=== PATIENT | female | born 1960 | race Caucasian/White ===

== ENCOUNTER 2017-07-10 13:37 | Emergency (ER) | payer SELFPAY ==
[2017-07-10] MEDS ORDERED: IPRATROPIUM BROM 0.5MG/2.5ML ONE (16:30)
[2017-07-10] MEDS ORDERED: ALBUTEROL 2.5 MG/3 ML NEB SOL ONE (16:30)
--- NOTE | 2017-07-10 16:45 | RAD REPORT ---
EXAM DESCRIPTION: Veronica Gomez And Amie (2 Views)07/10/2017 4:00 pm CLINICAL HISTORY: Cough COMPARISON: None FINDINGS: A mild right parahilar opacity is suspected. The left lung appears clear. A calcified gra nulomas present within the right lung. The heart is normal size IMPRESSION: Mild right parahilar opacity suspicious for infiltrate. This should be followed until i t is clear to help exclude a post obstructive process/underlying mass
--- NOTE | 2017-07-10 16:56 | ER ---
Nurse's Notes [facility] Name: Sue Dorado Age: 57 yrs Sex: Female : 1960 Arrival Date: 07/10/2017 Time: 13:45 Bed 27 Private MD: None, None Diagnosis: Pneumonia, unspecified organism Presentation: 07/10 13:57 Presenting complaint: Patient states: i had cough, running nose since this week, it got hj worse aaron last night, was gasping for air; reports fever and chills;. Transition of care: patient was not received from another setting of care. Onset of symptoms was July 10, 2017. Care prior to arrival: None. 13:57 Method Of Arrival: Ambulatory 13:57 Acuity: YOSEPH 4 hj Triage Assessment: 14:00 General: Appears in no apparent distress. uncomfortable, Behavior is calm, cooperative, hj appropriate for age. Pain: Complains of pain in head. EENT: Historical: - Allergies: 14:00 PENICILLINS; hj - Home Meds: 14:00 None [Active]; hj - PMHx: 14:00 None; hj - PSHx: 14:00 eye; Appendectomy; ; hj - Immunization history:: Pneumococcal vaccine is not up to date, Flu vaccine is not up to date. - Social history:: Smoking status: Patient/guardian denies using tobacco, never smoked. Screenin:21 Abuse screen: Denies threats or abuse. Nutritional screening: No deficits noted. kb1 Tuberculosis screening: No symptoms or risk factors identified. Fall Risk None identified. Assessment: 15:21 General: Appears in no apparent distress. Behavior is cooperative. Neuro: Level of kb1 Consciousness is awake, alert, obeys commands, Oriented to person, place, time, situation. Cardiovascular: Denies chest pain. Respiratory: Reports shortness of breath cough that is productive, for one week Respiratory effort is even, unlabored, Respiratory pattern is regular, symmetrical, Breath sounds with wheezes bilaterally. GI: No signs and/or symptoms were reported involving the gastrointestinal system. : No signs and/or symptoms were reported regarding the genitourinary system. 16:24 Reassessment: Patient appears in no apparent distress at this time. Patient and/or kb1 family updated on plan of care and expected duration. Pain level reassessed. Patient is alert, oriented x 3, equal unlabored respirations, skin warm/dry/pink. Vital Signs: 14:00 BP 107 / 75; Pulse 93; Resp 18; Temp 97.8(TE); Pulse Ox 100% on R/A; Weight 68.04 kg; hj Height 5 ft. 0 in. (152.40 cm); 16:24 BP 118 / 84; Pulse 72; Resp 18; Pulse Ox 96% ; kb1 17:12 BP 126 / 80; Pulse 87; Resp 20; Pulse Ox 97% ; kb1 14:00 Body Mass Index 29.29 (68.04 kg, 152.40 cm) hj ED Course: 13:45 Patient arrived in ED. mr 13:45 None, None is Private Physician. mr 13:59 Triage completed. hj 14:00 Arm band placed on right wrist. hj 14:57 Kaleigh Lyon FNP-C is [facility]. kb 14:57 Ambar Martinez MD is Attending Physician. kb 15:02 Bernadine Iyer, RN is Primary Nurse. kb1 15:21 Patient has correct armband on for positive identification. Call light in reach. kb1 sitting in chair. 15:21 No provider procedures requiring assistance completed. kb1 17:13 Patient did not have IV access during this emergency room visit. kb1 Administered Medications: 16:25 Drug: DuoNeb (3:1) (2.5 mg - 0.5 mg) 3 ml Route: Nebulizer; kb1 16:56 Follow up: Response: No adverse reaction kb1 16:56 Drug: Zithromax 500 mg Route: PO; kb1 17:14 Follow up: Response: No adverse reaction kb1 Outcome: 16:55 Discharge ordered by MD. kb 17:14 Discharged to home ambulatory, with family. kb1 17:14 Condition: improved 17:14 Discharge instructions given to patient, Instructed on discharge instructions, follow up and referral plans. medication usage, Demonstrated understanding of instructions, follow-up care, medications, Prescriptions given X 2. 17:15 Patient left the ED. kb1 Signatures: Kaleigh Lyon FNP-C FNP-Ckb Rivera, Maria mr Joaquin, Henry, RN RN Bernadine Iyer, LINA RN kb1 Corrections: (The following items were deleted from the chart) 17:14 17:13 Patient did not have IV access during this emergency room visit. intact, bleeding kb1 controlled, No redness/swelling at site. Pressure dressing applied, kb1
--- NOTE | 2017-07-10 16:56 | EDPHYS ---
Physician Documentation [facility] Name: Sue Dorado Age: 57 yrs Sex: Female : 1960 Arrival Date: 07/10/2017 Time: 13:45 Bed 27 Private MD: None, None ED Physician Ambar Martinez HPI: 07/10 16:49 This 57 yrs old Female presents to ER via Ambulatory with complaints of kb Cough, Ear Pain, Headache. 16:50 The patient or guardian reports cough, that is intermittent, described as mild, with no kb sputum, flu symptoms, low-grade fever, myalgias. Onset: The symptoms/episode began/occurred last week. Severity of symptoms: At their worst the symptoms were moderate, in the emergency department the symptoms are unchanged. Modifying factors: The symptoms are alleviated by nothing, the symptoms are aggravated by nothing. Associated signs and symptoms: Pertinent positives: fever, rhinorrhea, sore throat, Pertinent negatives: chest pain, diarrhea, ear ache, nausea, vomiting. The patient has not experienced similar symptoms in the past. The patient has not recently seen a physician. Historical: - Allergies: 14:00 PENICILLINS; hj - Home Meds: 14:00 None [Active]; hj - PMHx: 14:00 None; hj - PSHx: 14:00 eye; Appendectomy; ; hj - Immunization history:: Pneumococcal vaccine is not up to date, Flu vaccine is not up to date. - Social history:: Smoking status: Patient/guardian denies using tobacco, never smoked. ROS: 16:53 Cardiovascular: Negative for chest pain, palpitations, and edema, Abdomen/GI: Negative kb for abdominal pain, nausea, vomiting, diarrhea, and constipation, Back: Negative for injury and pain, : Negative for injury, bleeding, discharge, and swelling, MS/Extremity: Negative for injury and deformity, Skin: Negative for injury, rash, and discoloration, Neuro: Negative for headache, weakness, numbness, tingling, and seizure. 16:53 Constitutional: Positive for body aches, chills, fatigue, fever, malaise, Negative for poor PO intake, weight loss. 16:53 ENT: Positive for sore throat. 16:53 Respiratory: Positive for cough, Negative for dyspnea on exertion, hemoptysis, orthopnea, pleurisy, shortness of breath, sputum production, wheezing. Exam: 16:53 Constitutional: This is a well developed, well nourished patient who is awake, alert, kb and in no acute distress. Head/Face: Normocephalic, atraumatic. ENT: Nares patent. No nasal discharge, no septal abnormalities noted. Tympanic membranes are normal and external auditory canals are clear. Oropharynx with no redness, swelling, or masses, exudates, or evidence of obstruction, uvula midline. Mucous membranes moist. Neck: Trachea midline, no thyromegaly or masses palpated, and no cervical lymphadenopathy. Supple, full range of motion without nuchal rigidity, or vertebral point tenderness. No Meningismus. Chest/axilla: Normal chest wall appearance and motion. Nontender with no deformity. No lesions are appreciated. Cardiovascular: Regular rate and rhythm with a normal S1 and S2. No gallops, murmurs, or rubs. Normal PMI, no JVD. No pulse deficits. Abdomen/GI: Soft, non-tender, with normal bowel sounds. No distension or tympany. No guarding or rebound. No evidence of tenderness throughout. Back: No spinal tenderness. No costovertebral tenderness. Full range of motion. Skin: Warm, dry with normal turgor. Normal color with no rashes, no lesions, and no evidence of cellulitis. MS/ Extremity: Pulses equal, no cyanosis. Neurovascular intact. Full, normal range of motion. Neuro: Awake and alert, GCS 15, oriented to person, place, time, and situation. Cranial nerves II-XII grossly intact. Motor strength 5/5 in all extremities. Sensory grossly intact. Cerebellar exam normal. Normal gait. 16:53 Respiratory: the patient does not display signs of respiratory distress, Respirations: normal, symetrical, Breath sounds: wheezing: expiratory that is moderate, is scattered. Vital Signs: 14:00 BP 107 / 75; Pulse 93; Resp 18; Temp 97.8(TE); Pulse Ox 100% on R/A; Weight 68.04 kg; hj Height 5 ft. 0 in. (152.40 cm); 16:24 BP 118 / 84; Pulse 72; Resp 18; Pulse Ox 96% ; kb1 17:12 BP 126 / 80; Pulse 87; Resp 20; Pulse Ox 97% ; kb1 14:00 Body Mass Index 29.29 (68.04 kg, 152.40 cm) hj MDM: 14:57 Patient medically screened. kb 16:53 Data reviewed: vital signs, nurses notes. Data interpreted: Pulse oximetry: on room air kb is 96 %. Interpretation: normal. Counseling: I had a detailed discussion with the patient and/or guardian regarding: the historical points, exam findings, and any diagnostic results supporting the discharge/admit diagnosis, lab results, radiology results, the need for outpatient follow up, a family practitioner, to return to the emergency department if symptoms worsen or persist or if there are any questions or concerns that arise at home. 07/10 14:03 Order name: Flu 07/10 14:47 Order name: Influenza Screen (A ; Complete Time: 14:57 EDMS 07/10 15:27 Order name: Chest Pa And Lat (2 Views) XRAY 07/10 16:45 Order name: RAD; Complete Time: 16:49 EDMS Administered Medications: 16:25 Drug: DuoNeb (3:1) (2.5 mg - 0.5 mg) 3 ml Route: Nebulizer; kb1 16:56 Follow up: Response: No adverse reaction kb1 16:56 Drug: Zithromax 500 mg Route: PO; kb1 17:14 Follow up: Response: No adverse reaction kb1 Disposition: 18:43 Co-signature as Attending Physician, Ambar Martinez MD. ma2 Disposition: 07/10/17 16:55 Discharged to Home. Impression: Pneumonia, unspecified organism. - Condition is Stable. - Discharge Instructions: Pneumonia, Adult, [id number]. - Prescriptions for Zithromax Z- Keegan 250 mg Oral Tablet - take 1 tablet by ORAL route as directed for 5 days Day 1 - take two (2) tablets one time. Day 2, 3, 4 , 5 take one (1) tablet once daily.; 6 tablet. Albuterol Sulfate 90 mcg/actuation - inhale 1-2 puff by INHALATION route every 4-6 hours; 1 Inhaler. - Medication Reconciliation Form, Thank You Letter, Antibiotic Education, Prescription Opioid Use form. - Follow up: Emergency Department; When: As needed; Reason: Worsening of condition. Follow up: Private Physician; When: 2 - 3 days; Reason: Recheck today's complaints, Continuance of care, Re-evaluation by your physician. Signatures: Dispatcher [employer] Kaleigh Oliver FNP-C FNP-Ckb Joaquin, Henry, RN RN hj Ambar Martinez MD MD ma2 Bernadine Iyer RN RN kb1
[2017-07-10] MEDS ORDERED: AZITHROMYCIN 250 MG TAB ONE (17:12)
== END 2017-07-10 17:15 | disposition home or self-care (01) ==
LOC: ER 13:37
DX: J18.9 Pneumonia, unspecified organism (principal); Z88.0 Allergy status to penicillin
CPT/HCPCS: 71046; 87804; 94640; 99284